=== PATIENT | female | born 1965 | race Caucasian/White ===

== ENCOUNTER 2017-04-26 08:36 | Emergency (ER) | payer BC ==
[2017-04-26 08:59] VITALS: BP 122/75
--- NOTE | 2017-04-26 09:10 | UC ---
Ear Complaint HPI - HPI Summary HPI Summary: 52 year old female with complaints of left ear pain and blisters around mouth. Symptoms started on Friday 6 days ago and has been getting worse each day. Left ear now has redness around the outer ear and swollen lymph nodes. Denies fever, headache, nausea or vomiting. Hx of chicken pox as a child No history of cold sores No hx of ear infections light everyday smoker - History of Current Complaint Chief Complaint: UCGeneralIllness Stated Complaint: FACIAL COMPLAINT Time Seen by Provider: 04/26/17 08:48 Hx Obtained From: Patient ?: No Onset/Duration: Gradual Onset, Lasting Days - 6 Severity Initially: Moderate Severity Currently: Moderate Pain Scale Used: 0-10 Numeric - 5 Alleviating Factors: OTC Meds - tylenol Associated Signs/Symptoms: Positive: Swelling @. Negative: Discharge, Hearing Loss, Foreign Body Sensation, Trauma to Ear, URI Symptoms Related History: Smoking - Allergies/Home Medications Allergies/Adverse Reactions: Allergies Allergy/AdvReac Type Severity Reaction Status Date / Time Shellfish Allergy Allergy Vomiting Verified 04/26/17 08:53 PMH/Surg Hx/FS Hx/Imm Hx Previously Healthy: Yes - Surgical History Surgical History: Yes Surgery Procedure, Year, and Place: TUBAL [id number]. RIGHT HAND GANGLION CYST REMOVED - Family History Known Family History: Negative: Cardiac Disease, Hypertension - Social History Occupation: Employed Full-time Lives: With Family - Alcohol Use: Weekly Alcohol Amount: 3 PER WEEK Substance Use Type: None Smoking Status (MU): Light Every Day Tobacco Smoker Amount Used/How Often: 1-3 CIGARETTES PER DAY X 25 YEARS Have You Smoked in the Last Year: Yes Household Exposure Type: Cigarettes Cessation Counseling: Patient Advised to Stop - Immunization History Most Recent Influenza Vaccination: NO Review of Systems Constitutional: Negative Skin: Rash - over bottom lip - sensation of soreness stops at midline from left bottom lip Eyes: Negative ENT: Ear Ache - left Respiratory: Negative Cardiovascular: Negative Gastrointestinal: Negative Genitourinary: Negative Motor: Negative Neurovascular: Negative Musculoskeletal: Negative Neurological: Negative Psychological: Negative Is Patient Immunocompromised?: No All Other Systems Reviewed And Are Negative: Yes Physical Exam Triage Information Reviewed: Yes Appearance: Well-Nourished, Ill-Appearing Vital Signs: Initial Vital Signs Temp 98.3 F 04/26/17 08:53 Pulse 72 04/26/17 08:53 Resp 16 04/26/17 08:53 BP 122/75 04/26/17 08:53 Pulse Ox 99 04/26/17 08:53 Vital Signs Reviewed: Yes Eyes: Positive: Conjunctiva Clear, Other: - PERRLA, NO erythema, no lid drooping. Good facial symmetry. Negative: Discharge ENT: Positive: Pharynx normal, TM red - left. Erythema and fine vessicular rash noted at the left lateral face and ear. Larger vessicular rash at bottom lip. over bottom lip - sensation of soreness stops at midline from left bottom lip. Negative: Nasal congestion Dental: Positive: Other: - feels soreness at the left lower molars. No obvious erythema or absecess Neck: Positive: Supple, Nontender, Enlarged Nodes @ - Left ac and pc Respiratory: Positive: Lungs clear, Normal breath sounds, No respiratory distress Cardiovascular: Positive: RRR, No Murmur Abdomen Description: Positive: Soft. Negative: CVA Tenderness (R), CVA Tenderness (L) Musculoskeletal: Positive: Strength Intact, ROM Intact, No Edema Neurological: Positive: Alert, Muscle Tone Normal Psychological: Positive: Age Appropriate Behavior - pleasant and cooperative Skin: Positive: rashes - fine vessicular rash over left side of lower lip, and outside of left ear. No drainage noted Ear Complaint Course/Dx - Course Course Of Treatment: Education about shingles. Education about Antiviral medication. Follow up plan with her ENT Dr. Johnson established - Differential Dx/Diagnosis Differential Diagnosis/HQI/PQRI: Cellulitis, Otitis Media Provider Diagnoses: Shingles. Left otits media Discharge - Discharge Plan Condition: Stable Disposition: HOME Prescriptions: Amoxicillin/Clavulanate TAB* [Augmentin TAB 875*] 875 mg PO BID #14 tab predniSONE TAB* [Deltasone TAB*] 40 mg PO DAILY #10 tab Trifluridine 1% OPTH.LEATHA*(NF) [Viroptic 1% OPTH.LEATHA*] 1 drop LEFT EYE Q4H #1 btl ValACYclovir (*) [Valtrex 1 GM(*)] 1 gm PO TID #21 tab Patient Education Materials: Shingles (ED) Referrals: Gilmar Johnson MD [Medical Doctor] - 3 Days Ruddy Braxton MD [Medical Doctor] - 3 Days
== END 2017-04-26 09:49 | disposition home or self-care (01) ==
LOC: UCCORT 08:36
DX: B02.9 Zoster without complications (principal); H66.92 Otitis media, unspecified, left ear; F17.210 Nicotine dependence, cigarettes, uncomplicated
CPT/HCPCS: 99212; G0463